=== PATIENT | female | born 1950 | race Caucasian/White ===

== ENCOUNTER 2019-01-08 11:58 | Inpatient (IN) | payer MEDICAID ==
[2019-01-08 13:19] LABS: ADD MAN DIFF? NO
[2019-01-08 13:20] LABS: WHITE BLOOD COUNT 4.8 10^3/ul (4.8-10.8)
[2019-01-08 13:20] LABS: BASOPHILS % 0.4 % (0.0-2.0); EOSINOPHILS # 0.2 10^3/ul (0.0-0.5); EOSINOPHILS % 4.2 % (0.0-7.0); HEMATOCRIT 36.8 % (37.0-47.0); HEMOGLOBIN 11.9 g/dl (12.0-16.0); MEAN CORPUSCULAR HEMOGLOBIN 30.7 pg (29.0-33.0); MEAN CORPUSCULAR HGB CONC 32.3 g/dl (32.0-37.0); MEAN CORPUSCULAR VOLUME 94.8 fl (82.0-101.0); MEAN PLATELET VOLUME 9.8 fl (7.4-10.4); MONOCYTE # 0.4 10^3/ul (0.3-0.9); MONOCYTES % 8.4 % (0.0-11.0); NEUTROPHIL # 3.2 10^3/ul (1.6-7.5); NEUTROPHILS % 66.8 % (39.0-77.0); PLATELET COUNT 156 10^3/UL (140-415); RED BLOOD COUNT 3.88 10^6/ul (4.20-5.40); RED CELL DISTRIBUTION WIDTH 14.2 % (11.5-14.5)
[2019-01-08 13:46] LABS: ANION GAP 15 (5-13); BLOOD UREA NITROGEN 50 mg/dl (7-20); CALCIUM 9.9 mg/dl (8.4-10.2); CARBON DIOXIDE 29 mmol/L (21-31); CHLORIDE 94 mmol/L (97-110); CREATININE 8.69 mg/dl (0.44-1.00); Estimated GFR 5 mL/min (>60); GLUCOSE 218 mg/dl (70-220); POTASSIUM 4.5 mmol/L (3.5-5.1); SODIUM 138 mmol/L (135-144)
[2019-01-08] MEDS ORDERED: NACL 0.9% 3 ML SYG IV (14:30)
[2019-01-08] MEDS ORDERED: GLUCOSE GEL 15 GRAM TUBE PO ×2 (15:30)
[2019-01-08] MEDS ORDERED: DEXTROSE 50% 50 ML SYRINGE IV ×2 (15:30)
[2019-01-08] MEDS ORDERED: GLUCAGON 1 MG INJ IM (15:30)
[2019-01-08] MEDS ORDERED: GLUCOSE GEL 15 GRAM TUBE BUCCAL (15:30)
[2019-01-08] MEDS: INSULIN ASPART [NOVOLOG] 3 ML PEN SC ×2 (17:26→21:00)
[2019-01-08 19:50] LABS: HEPATITIS B SURFACE ANTIGEN NEGATIVE (NEGATIVE)
[2019-01-09 05:48] LABS: ADD MAN DIFF? NO
[2019-01-09 05:55] LABS: BASOPHILS % 0.5 % (0.0-2.0); EOSINOPHILS # 0.2 10^3/ul (0.0-0.5); EOSINOPHILS % 4.5 % (0.0-7.0); HEMATOCRIT 33.6 % (37.0-47.0); HEMOGLOBIN 10.9 g/dl (12.0-16.0); LYMPHOCYTES # 1.1 10^3/ul (0.8-2.9); MEAN CORPUSCULAR HEMOGLOBIN 30.8 pg (29.0-33.0); MEAN CORPUSCULAR HGB CONC 32.4 g/dl (32.0-37.0); MEAN CORPUSCULAR VOLUME 94.9 fl (82.0-101.0); MEAN PLATELET VOLUME 10.1 fl (7.4-10.4); MONOCYTE # 0.4 10^3/ul (0.3-0.9); MONOCYTES % 8.1 % (0.0-11.0); NEUTROPHIL # 2.8 10^3/ul (1.6-7.5); NEUTROPHILS % 62.7 % (39.0-77.0); PLATELET COUNT 143 10^3/UL (140-415); RED BLOOD COUNT 3.54 10^6/ul (4.20-5.40)
[2019-01-09 05:55] LABS: WHITE BLOOD COUNT 4.4 10^3/ul (4.8-10.8)
[2019-01-09 06:24] LABS: ANION GAP 15 (5-13); BLOOD UREA NITROGEN 58 mg/dl (7-20); CALCIUM 9.6 mg/dl (8.4-10.2); CARBON DIOXIDE 28 mmol/L (21-31); CHLORIDE 96 mmol/L (97-110); CREATININE 9.49 mg/dl (0.44-1.00); Estimated GFR 4 mL/min (>60); GLUCOSE 121 mg/dl (70-220); IRON 52 ug/dl (35-150); POTASSIUM 5.2 mmol/L (3.5-5.1); SODIUM 139 mmol/L (135-144)
[2019-01-09 06:33] LABS: % IRON SATURATION 28 % SAT (22-52); TOTAL IRON BINDING CAPACITY 189 ug/dl (241-421)
[2019-01-09 06:49] LABS: PHOSPHORUS 6.2 mg/dl (2.5-4.9)
[2019-01-09 06:49] LABS: MAGNESIUM 2.2 mg/dl (1.7-2.5)
[2019-01-09 07:44] LABS: HEMOGLOBIN A1C 6.3 % (0-5.9)
[2019-01-09] MEDS: INSULIN ASPART [NOVOLOG] 3 ML PEN SC ×2 (08:00→12:00)
[2019-01-09] MEDS: MULTIVIT/CA CARB/B CMPLX/FA TAB PO (09:00)
[2019-01-09] MEDS: LOSARTAN 50 MG TAB PO (09:00)
[2019-01-09] MEDS: AMLODIPINE 5 MG TAB PO (09:00)
[2019-01-09] MEDS: EPOETIN ALFA-EPBX (ESRD) 4,000 UNIT/ML VIAL SC (17:14)
[2019-01-10] MEDS: AMLODIPINE 5 MG TAB PO (09:00)
[2019-01-10] MEDS: LOSARTAN 50 MG TAB PO (09:00)
[2019-01-10] MEDS: MULTIVIT/CA CARB/B CMPLX/FA TAB PO (09:09)
[2019-01-11] MEDS: MULTIVIT/CA CARB/B CMPLX/FA TAB PO (09:59)
[2019-01-11] MEDS: LOSARTAN 50 MG TAB PO (10:00)
[2019-01-11] MEDS: AMLODIPINE 5 MG TAB PO (10:01)
[2019-01-11] MEDS: PANTOPRAZOLE (EC) 40 MG TAB PO (15:16)
[2019-01-11] MEDS: EPOETIN ALFA-EPBX (ESRD) 4,000 UNIT/ML VIAL SC (17:57)
[2019-01-12] MEDS: PANTOPRAZOLE (EC) 40 MG TAB PO (05:47)
[2019-01-12] MEDS: MULTIVIT/CA CARB/B CMPLX/FA TAB PO (08:12)
[2019-01-12] MEDS: LOSARTAN 50 MG TAB PO (08:13)
[2019-01-12] MEDS: AMLODIPINE 5 MG TAB PO (08:13)
[2019-01-12] MEDS ORDERED: SOD CHLORIDE 0.9% 1,000 ML IV (13:01)
[2019-01-12] MEDS ORDERED: ALBUMIN HUMAN 25% 100 ML IV (13:30)
[2019-01-12] MEDS ORDERED: HEPARIN 1000 UNITS/ML 10 ML INJ CATHETER (13:30)
[2019-01-12] MEDS ORDERED: SODIUM CHLORIDE 0.9% 1L BAG IV (13:30)
[2019-01-13] MEDS: PANTOPRAZOLE (EC) 40 MG TAB PO (06:29)
[2019-01-13] MEDS: LOSARTAN 50 MG TAB PO (08:37)
[2019-01-13] MEDS: AMLODIPINE 5 MG TAB PO (08:38)
[2019-01-13] MEDS: MULTIVIT/CA CARB/B CMPLX/FA TAB PO (08:38)
[2019-01-14 06:10] LABS: ADD MAN DIFF? NO
[2019-01-14] MEDS: PANTOPRAZOLE (EC) 40 MG TAB PO (06:12)
[2019-01-14 06:20] LABS: WHITE BLOOD COUNT 4.1 10^3/ul (4.8-10.8)
[2019-01-14 06:20] LABS: BASOPHILS % 0.5 % (0.0-2.0); EOSINOPHILS # 0.2 10^3/ul (0.0-0.5); EOSINOPHILS % 5.4 % (0.0-7.0); HEMATOCRIT 34.9 % (37.0-47.0); HEMOGLOBIN 11.3 g/dl (12.0-16.0); LYMPHOCYTES # 0.9 10^3/ul (0.8-2.9); LYMPHOCYTES % 22.5 % (15.0-51.0); MEAN CORPUSCULAR HEMOGLOBIN 30.5 pg (29.0-33.0); MEAN CORPUSCULAR HGB CONC 32.4 g/dl (32.0-37.0); MEAN CORPUSCULAR VOLUME 94.3 fl (82.0-101.0); MEAN PLATELET VOLUME 10.6 fl (7.4-10.4); MONOCYTE # 0.3 10^3/ul (0.3-0.9); MONOCYTES % 8.1 % (0.0-11.0); NEUTROPHIL # 2.6 10^3/ul (1.6-7.5); PLATELET COUNT 156 10^3/UL (140-415); RED CELL DISTRIBUTION WIDTH 14.3 % (11.5-14.5)
[2019-01-14 07:09] LABS: ANION GAP 12 (5-13); BLOOD UREA NITROGEN 26 mg/dl (7-20); CALCIUM 9.4 mg/dl (8.4-10.2); CARBON DIOXIDE 28 mmol/L (21-31); CHLORIDE 100 mmol/L (97-110); CREATININE 5.13 mg/dl (0.44-1.00); Estimated GFR 8 mL/min (>60); GLUCOSE 108 mg/dl (70-220); PHOSPHORUS 4.2 mg/dl (2.5-4.9); POTASSIUM 4.6 mmol/L (3.5-5.1); SODIUM 140 mmol/L (135-144)
[2019-01-14] MEDS: MULTIVIT/CA CARB/B CMPLX/FA TAB PO (09:32)
[2019-01-14] MEDS: LOSARTAN 50 MG TAB PO (09:32)
[2019-01-14] MEDS: AMLODIPINE 5 MG TAB PO (09:32)
[2019-01-14] MEDS ORDERED: ACETAMINOPHEN 325 MG TAB PO (15:30)
[2019-01-15] MEDS: PANTOPRAZOLE (EC) 40 MG TAB PO (05:25)
[2019-01-15] MEDS: AMLODIPINE 5 MG TAB PO (09:00)
[2019-01-15] MEDS: MULTIVIT/CA CARB/B CMPLX/FA TAB PO (09:00)
[2019-01-15] MEDS: LOSARTAN 50 MG TAB PO (09:00)
[2019-01-15 11:05] LABS: HAAIG REFLEX REFLEX FILED
[2019-01-15 12:12] LABS: HEPATITIS B SURFACE ANTIGEN NEGATIVE (NEGATIVE)
[2019-01-15 12:30] LABS: HEPATITIS B CORE ANTIBODY REACTIVE (NEGATIVE); HEPATITIS C VIRAL ANTIBODY NEGATIVE (NEGATIVE)
[2019-01-16] MEDS: PANTOPRAZOLE (EC) 40 MG TAB PO (05:46)
[2019-01-16] MEDS: AMLODIPINE 5 MG TAB PO (08:44)
[2019-01-16] MEDS: MULTIVIT/CA CARB/B CMPLX/FA TAB PO (08:44)
[2019-01-16] MEDS: LOSARTAN 50 MG TAB PO (08:45)
== END 2019-01-16 11:40 | disposition home or self-care (01) | DRG 682 ==
LOC: E/R 11:58 → PP2 13:53
PROVIDERS: Internal Medicine
PROC: 5A1D70Z Performance of Urinary Filtration, Intermittent, Less than 6 Hours Per Day (ICD-10-PCS; principal; 2019-01-09)
DX: I12.0 Hypertensive chronic kidney disease with stage 5 chronic kidney disease or end stage renal disease (principal); N18.6 End stage renal disease; E87.5 Hyperkalemia; D64.9 Anemia, unspecified; Z99.2 Dependence on renal dialysis; R51 Headache
CPT/HCPCS: 36415; 71045; 80048; 82728; 82962; 83036; 83540; 83735; 84100; 85025; 86704; 86709; 86803; 87340; 90935; 99285-25; G0378

== ENCOUNTER 2019-05-01 13:27 | Inpatient (IN) | payer OTHER, MEDICAID ==
[2019-05-01 15:21] LABS: ADD MAN DIFF? NO
[2019-05-01 15:25] LABS: BASOPHILS % 0.6 % (0.0-2.0); EOSINOPHILS # 0.2 10^3/ul (0.0-0.5); EOSINOPHILS % 3.8 % (0.0-7.0); HEMATOCRIT 36.1 % (37.0-47.0); HEMOGLOBIN 11.5 g/dl (12.0-16.0); LYMPHOCYTES # 0.9 10^3/ul (0.8-2.9); LYMPHOCYTES % 17.2 % (15.0-51.0); MEAN CORPUSCULAR HEMOGLOBIN 30.3 pg (29.0-33.0); MEAN CORPUSCULAR HGB CONC 31.9 g/dl (32.0-37.0); MEAN PLATELET VOLUME 9.2 fl (7.4-10.4); MONOCYTE # 0.3 10^3/ul (0.3-0.9); MONOCYTES % 5.5 % (0.0-11.0); NEUTROPHIL # 3.9 10^3/ul (1.6-7.5); NEUTROPHILS % 72.7 % (39.0-77.0); PLATELET COUNT 198 10^3/UL (140-415); RED CELL DISTRIBUTION WIDTH 14.6 % (11.5-14.5)
[2019-05-01 15:25] LABS: WHITE BLOOD COUNT 5.3 10^3/ul (4.8-10.8)
[2019-05-01 15:43] LABS: ANION GAP 17 (5-13); BLOOD UREA NITROGEN 64 mg/dl (7-20); CALCIUM 9.7 mg/dl (8.4-10.2); CARBON DIOXIDE 22 mmol/L (21-31); CHLORIDE 97 mmol/L (97-110); CREATININE 13.14 mg/dl (0.44-1.00); Estimated GFR 3 mL/min (>60); GLUCOSE 116 mg/dl (70-220); SODIUM 136 mmol/L (135-144)
[2019-05-01 15:46] LABS: POTASSIUM 6.3 mmol/L (3.5-5.1)
[2019-05-01] MEDS: SODIUM POLYSTYRENE 15 GM KIT (POWDER + SORBITOL) PO (15:46)
[2019-05-01 15:55] LABS: TROPONIN-I < 0.012 ng/ml (0.000-0.120)
[2019-05-01 16:04] LABS: INR 0.98; PROTIME 13.1 Sec (11.9-14.9)
[2019-05-01] MEDS ORDERED: ONDANSETRON 4 MG INJ IV (16:30)
[2019-05-01] MEDS ORDERED: ACETAMINOPHEN 325 MG TAB PO (16:30)
[2019-05-01] MEDS: CALCIUM GLUCONATE 10% 1 GM in DEXTROSE 5% 100 ML IVPB (16:51)
[2019-05-01] MEDS: NA POLYST SULFON 15 GM/60 ML BTL PO ×2 (16:52→19:30)
[2019-05-01] MEDS ORDERED: NACL 0.9% 3 ML SYG IV (19:00)
[2019-05-01 22:59] LABS: ALANINE AMINOTRANSFERASE 15 IU/L (13-69); ALBUMIN 4.3 g/dl (3.3-4.9); ALBUMIN/GLOBULIN RATIO 1.38; ALKALINE PHOSPHATASE 73 IU/L (42-121); ANION GAP 18 (5-13); ASPARTATE AMINO TRANSFERASE 18 IU/L (15-46); BILIRUBIN,INDIRECT 0.1 mg/dl (0-1.1); BILIRUBIN,TOTAL 0.1 mg/dl (0.2-1.3); BLOOD UREA NITROGEN 67 mg/dl (7-20); CALCIUM 9.5 mg/dl (8.4-10.2); CARBON DIOXIDE 21 mmol/L (21-31); CHLORIDE 101 mmol/L (97-110); CREATININE 13.02 mg/dl (0.44-1.00); Estimated GFR 3 mL/min (>60); GLUCOSE 141 mg/dl (70-220); SODIUM 140 mmol/L (135-144); TOTAL PROTEIN 7.4 g/dl (6.1-8.1)
[2019-05-01 23:01] LABS: POTASSIUM 6.1 mmol/L (3.5-5.1)
[2019-05-01] MEDS: ALBUTEROL 0.083% (NEB) 2.5 MG/3 ML AMP HHN (23:59)
[2019-05-02] MEDS: NA POLYST SULFON 15 GM/60 ML BTL PO (00:10)
[2019-05-02] MEDS: DEXTROSE 50% 50 ML SYRINGE IV ×3 (00:10→03:58)
[2019-05-02] MEDS: INSULIN REGULAR, HUMAN 100 UNIT/1 ML 3ML VIAL IVP (00:44)
[2019-05-02 02:22] LABS: ANION GAP 19 (5-13); BLOOD UREA NITROGEN 68 mg/dl (7-20); CALCIUM 9.7 mg/dl (8.4-10.2); CARBON DIOXIDE 19 mmol/L (21-31); CHLORIDE 103 mmol/L (97-110); CREATININE 13.44 mg/dl (0.44-1.00); Estimated GFR 3 mL/min (>60); SODIUM 141 mmol/L (135-144)
[2019-05-02 02:30] LABS: GLUCOSE 41 mg/dl (70-220)
[2019-05-02 06:35] LABS: ANION GAP 16 (5-13); BLOOD UREA NITROGEN 69 mg/dl (7-20); CALCIUM 9.4 mg/dl (8.4-10.2); CARBON DIOXIDE 20 mmol/L (21-31); CHLORIDE 102 mmol/L (97-110); CREATININE 13.22 mg/dl (0.44-1.00); Estimated GFR 3 mL/min (>60); GLUCOSE 132 mg/dl (70-220); MAGNESIUM 2.2 mg/dl (1.7-2.5); PHOSPHORUS 7.6 mg/dl (2.5-4.9); POTASSIUM 5.2 mmol/L (3.5-5.1); SODIUM 138 mmol/L (135-144)
[2019-05-02 07:10] LABS: HEMOGLOBIN A1C 5.5 % (0-5.9)
[2019-05-02 08:46] LABS: HEPATITIS B SURFACE ANTIGEN NEGATIVE (NEGATIVE)
[2019-05-02] MEDS: AMLODIPINE 5 MG TAB PO (09:00)
[2019-05-02] MEDS: MULTIVIT/CA CARB/B CMPLX/FA TAB PO (09:00)
[2019-05-02] MEDS: LIDOCAINE 1% (MDV) 20 ML INJ (10:16)
[2019-05-02] MEDS: HEPARIN 1000 UNITS/ML 10 ML INJ (10:41)
[2019-05-02] MEDS: CEFAZOLIN 1 GM/50 ML (PMX) 50 ML IVPB (11:34)
[2019-05-02] MEDS: FENTAnyl 50 MCG/ML VIAL (11:38)
[2019-05-02] MEDS: HYDROCODONE/APAP (5/325) TAB PO (13:37)
[2019-05-02] MEDS ORDERED: hydrALAzine 20 MG INJ IV (17:00)
[2019-05-02] MEDS: HEPARIN 1000 UNITS/ML 10 ML INJ CATHETER (18:40)
[2019-05-03 06:25] LABS: ADD MAN DIFF? NO
[2019-05-03 06:36] LABS: WHITE BLOOD COUNT 5.8 10^3/ul (4.8-10.8)
[2019-05-03 06:36] LABS: BASOPHILS % 0.3 % (0.0-2.0); EOSINOPHILS # 0.2 10^3/ul (0.0-0.5); EOSINOPHILS % 3.1 % (0.0-7.0); HEMATOCRIT 35.8 % (37.0-47.0); HEMOGLOBIN 11.2 g/dl (12.0-16.0); LYMPHOCYTES # 0.7 10^3/ul (0.8-2.9); LYMPHOCYTES % 11.8 % (15.0-51.0); MEAN CORPUSCULAR HEMOGLOBIN 29.9 pg (29.0-33.0); MEAN CORPUSCULAR HGB CONC 31.3 g/dl (32.0-37.0); MEAN CORPUSCULAR VOLUME 95.5 fl (82.0-101.0); MEAN PLATELET VOLUME 9.9 fl (7.4-10.4); MONOCYTE # 0.4 10^3/ul (0.3-0.9); MONOCYTES % 6.8 % (0.0-11.0); NEUTROPHIL # 4.5 10^3/ul (1.6-7.5); NEUTROPHILS % 77.7 % (39.0-77.0); PLATELET COUNT 196 10^3/UL (140-415); RED BLOOD COUNT 3.75 10^6/ul (4.20-5.40); RED CELL DISTRIBUTION WIDTH 14.9 % (11.5-14.5)
[2019-05-03 07:11] LABS: INR 1.07; PT RATIO 1.1
[2019-05-03 07:12] LABS: ANION GAP 14 (5-13); BLOOD UREA NITROGEN 44 mg/dl (7-20); CALCIUM 9.1 mg/dl (8.4-10.2); CARBON DIOXIDE 25 mmol/L (21-31); CHLORIDE 102 mmol/L (97-110); CREATININE 9.87 mg/dl (0.44-1.00); Estimated GFR 4 mL/min (>60); GLUCOSE 108 mg/dl (70-220); PARTIAL THROMBOPLASTIN TIME 34.3 Sec (23.0-35.0); POTASSIUM 4.7 mmol/L (3.5-5.1); SODIUM 141 mmol/L (135-144)
[2019-05-03] MEDS: MULTIVIT/CA CARB/B CMPLX/FA TAB PO (08:46)
[2019-05-03] MEDS: HYDROCODONE/APAP (5/325) TAB PO ×2 (11:11→19:47)
[2019-05-03] MEDS: AMLODIPINE 5 MG TAB PO (11:15)
== END 2019-05-03 22:40 | disposition home or self-care (01) | DRG 286 ==
LOC: E/R 13:27 → 6WM 16:58
PROC: 5A1D70Z Performance of Urinary Filtration, Intermittent, Less than 6 Hours Per Day (ICD-10-PCS; principal; 2019-05-02)
PROC: B214YZZ Fluoroscopy of Right Heart using Other Contrast (ICD-10-PCS; 2019-05-02)
PROC: 02H633Z Insertion of Infusion Device into Right Atrium, Percutaneous Approach (ICD-10-PCS; 2019-05-02)
PROC: B244YZZ Ultrasonography of Right Heart using Other Contrast (ICD-10-PCS; 2019-05-02)
DX: T82.868A Thrombosis due to vascular prosthetic devices, implants and grafts, initial encounter (principal); N18.6 End stage renal disease; I12.0 Hypertensive chronic kidney disease with stage 5 chronic kidney disease or end stage renal disease; E87.5 Hyperkalemia; D63.1 Anemia in chronic kidney disease; Y83.2 Surgical operation with anastomosis, bypass or graft as the cause of abnormal reaction of the patient, or of later complication, without mention of misadventure at the time of the procedure; Y92.019 Unspecified place in single-family (private) house as the place of occurrence of the external cause; Z99.2 Dependence on renal dialysis; Q78.9 Osteochondrodysplasia, unspecified
CPT/HCPCS: 36415; 36556; 71045; 76942; 80048; 80053; 82962; 83036; 83735; 84100; 84443; 84484; 85025; 85610; 85730; 87081; 87340; 90935; 93005; 93931; 94664; 99285-25